=== PATIENT | female | born 1985 | race African-American/Black ===

== ENCOUNTER 2018-04-30 14:27 | Emergency (ER) | payer SELFPAY ==
[~2018-04-30 14:27] MED LIST: Iopamidol 370 76% 100 ML VIAL ONE
[2018-04-30 15:05] LABS: #Basophils 0.1 thou/uL (0.0-0.2); #Eosinphils 0.8 thou/uL (0.0-0.7); #Lymphocytes 1.6 thou/uL (1.20-3.40); #Monocytes 0.4 thou/uL (0.11-0.59); #Neutrophils 6.5 thou/uL (1.40-6.50); %Basophils 1.1 % (0.0-1.0); %Eosinophils 8.2 % (0.0-10.0); %Lymphocytes 17.1 % (21.0-51.0); %Monocytes 4.2 % (0.0-10.0); %Neutrophils 69.5 % (42.0-75.0); Hemoglobin 13.8 g/dL (12.0-16.0); Mean Corpuscular HGB CONC 33.1 g/dL (32.0-36.0); Mean Corpuscular Hemoglobin 29.4 pg (27.0-31.0); Mean Corpuscular Volume 88.8 fL (78.0-98.0); Mean Platelet Volume 6.5 fL (7.4-10.4); Platelet Count 404 thou/uL (130-400); RBC Distribution Width 11.8 % (11.5-14.5); White Blood Cell (WBC) Count 9.3 thou/uL (4.8-10.8)
[2018-04-30 15:24] LABS: BHCG - Serum Negative (NEGATIVE); Pregs Control Bar Appear? YES (CONTROL BAR)
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
[2018-04-30] MEDS ORDERED: Ketorolac Tromethamine 30 MG/ML VIAL ONE (16:01)
[2018-04-30 16:23] LABS: ALT (SGPT) 28 U/L (8-55); AST (SGOT) 23 U/L (5-34); Albumin 4.5 g/dL (3.5-5.0); Alkaline Phosphatase 82 U/L (40-150); Anion Gap 12 mmol/L (10-20); BUN (Urea Nitrogen) 5 mg/dL (7.0-18.7); Bilirubin, Total 0.8 mg/dL (0.2-1.2); Calc. Creatinine Clearance 0 mL/min (70-130); Calcium 9.7 mg/dL (7.8-10.44); Carbon Dioxide 23 mmol/L (22-29); Chloride 106 mmol/L (98-107); Estimated GFR-MDRD Greater than 90; Globulin 3.2 g/dL (2.4-3.5); Glucose 109 mg/dL (70-105); Potassium 3.1 mmol/L (3.5-5.1); Protein, Total 7.7 g/dL (6.0-8.3); Sodium 138 mmol/L (136-145)
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
== END 2018-04-30 16:40 | disposition home or self-care (01) ==
LOC: NAV ERS 14:27
DX: S27.322A Contusion of lung, bilateral, initial encounter (principal); F17.210 Nicotine dependence, cigarettes, uncomplicated; V43.52XA Car driver injured in collision with other type car in traffic accident, initial encounter
CPT/HCPCS: 36415; 71260; 72125; 74177; 80053; 84703; 85025; 94799; 96374; J1885; J7620; Q9967

== ENCOUNTER 2018-05-08 23:06 | Emergency (ER) | payer SELFPAY ==
[2018-05-08] MEDS ORDERED: methylPREDNISolone Acetate 40 mg/ml Vial ONE (23:30)
--- NOTE | 2018-05-13 05:57 | PQF ---
[facility] POST DISCHARGE CLINICAL DOCUMENTATION IMPROVEMENT CLARIFICATION FORM l Todays Date: 05/11/18 l Patients Name Krystal Duncan l l Admit Date 05/08/18 l Disch Date 05/08/18 Apron Operator Name [email or web address] To be completed by Apron Operator: Present Clinical Indicators - Signs / Symptoms Results and Location in Medical Record [ ] Documentation of: [ ] [ ] Documentation of: [ ] [ ] Documentation of: [ ] [ ] Documentation of: [ ] [ ] Risks [ ] [ ] [ ] Treatment [ ] BRONCHITIS MISSING SPECIFICITY FOR BRONCHITIS WHETHER ACUTE OR CHRONIC PLEASE CLARIFY. [ ] [ ] To be completed by Physician MD Acevedo James The documentation in this patients record requires clarification to ensure coding compliance and accuracy. Check the appropriate box and include in your discharge summary. [ ] [ ] [ ] [ ] Please check this box if this does not apply to this patient [ ] Unable to determine [ ] Other diagnosis: Review the following information and exercise your independent professional judgment in responding to the clarification. Based upon the clinical findings, risk factors, and treatment, please clarify if you are treating one of the above probable or suspected diagnoses. Physician Signature: Date Time MTDD
== END 2018-05-08 23:50 | disposition home or self-care (01) ==
LOC: NAV ERS 23:06
DX: J04.0 Acute laryngitis (principal); J40 Bronchitis, not specified as acute or chronic; F17.210 Nicotine dependence, cigarettes, uncomplicated; Z79.51 Long term (current) use of inhaled steroids
CPT/HCPCS: 94640; 96372; J1030; J7620

== ENCOUNTER 2019-01-29 11:23 | Emergency (ER) | payer SELFPAY | END 2019-01-29 12:03 | disposition home or self-care (01) | LOC: NAV ERS 11:23 | DX: K02.9 Dental caries, unspecified (principal); Z87.891 Personal history of nicotine dependence | CPT/HCPCS: 99281 ==

== ENCOUNTER 2019-04-27 00:23 | Emergency (ER) | payer OTHER ==
[2019-04-27] MEDS ORDERED: Albuterol Sulfate 2.5 mg/0.5 ml Neb ONE (01:03)
[2019-04-27] MEDS ORDERED: Ibuprofen 200 MG TAB ONE (01:10)
[2019-04-27] MEDS ORDERED: Acetaminophen 325 MG TAB ONE (01:11)
--- NOTE | 2019-04-27 09:34 | RAD ---
EXAM: Two views chest PROVIDED CLINICAL HISTORY: Cough. COMPARISON: 01/04/2008 FINDINGS: Cardiac silhouette and pulmonary vasculature are within normal limits. The lungs are clear. The osse ous structures have a normal appearance. No interval change from prior exam. IMPRESSION: No acute cardiopulmonary process.
== END 2019-04-27 02:07 | disposition home or self-care (01) ==
LOC: NAV ERS 00:23
DX: B34.9 Viral infection, unspecified (principal); Z87.891 Personal history of nicotine dependence
CPT/HCPCS: 71046; 87804; 94640; 94760; J7611

== ENCOUNTER 2020-01-23 08:31 | Emergency (ER) | payer OTHER ==
[2020-01-23] MEDS ORDERED: Acetaminophen 500 MG TAB ONE (08:55)
[2020-01-23] MEDS ORDERED: Cephalexin 250 MG CAP ONE (08:55)
[2020-01-23] MEDS ORDERED: Lidocaine Viscous Sol 2% 15 ml UD Cup ONE (08:55)
== END 2020-01-23 09:05 | disposition home or self-care (01) ==
LOC: NAV ERS 08:31
DX: N76.89 Other specified inflammation of vagina and vulva (principal); F17.210 Nicotine dependence, cigarettes, uncomplicated; Z79.899 Other long term (current) drug therapy
CPT/HCPCS: 99283

== ENCOUNTER 2021-02-15 05:18 | Emergency (ER) | payer OTHER ==
[2021-02-15] MEDS ORDERED: Lidocaine 1% (PF) 30 ML VIAL ONE (05:49)
[2021-02-15] MEDS ORDERED: Ibuprofen 100 MG/5 ML UDCUP ONE (05:50)
== END 2021-02-15 06:35 | disposition home or self-care (01) ==
LOC: NAV ERS 05:18
DX: N75.1 Abscess of Bartholin's gland (principal); F17.210 Nicotine dependence, cigarettes, uncomplicated
CPT/HCPCS: 56420; 87070; 87077; 87205; J2001

== ENCOUNTER 2021-02-21 17:42 | Emergency (ER) | payer OTHER | END 2021-02-21 18:12 | disposition home or self-care (01) | LOC: NAV ERS 17:42 | DX: Z46.82 Encounter for fitting and adjustment of non-vascular catheter (principal); F17.210 Nicotine dependence, cigarettes, uncomplicated | CPT/HCPCS: 99282 ==

== ENCOUNTER 2022-10-03 21:26 | Emergency (ER) | payer OTHER | END 2022-10-03 22:27 | disposition left against medical advice (07) | LOC: NAV ERS 21:26 | DX: J20.9 Acute bronchitis, unspecified (principal); J06.9 Acute upper respiratory infection, unspecified; F17.210 Nicotine dependence, cigarettes, uncomplicated; Z20.822 Contact with and (suspected) exposure to COVID-19 | CPT/HCPCS: 87635; 99285 ==

== ENCOUNTER 2023-08-02 19:22 | Emergency (ER) | payer OTHER ==
[2023-08-02] MEDS ORDERED: Lidocaine 1% w/Epinephrine 1:100K 20 ML VIAL ONE (19:43)
[2023-08-02] MEDS ORDERED: Ibuprofen 800 MG TAB ONE (19:43)
[2023-08-02] MEDS ORDERED: HYDROcodone/Acetaminophen 10/325 mg Tablet ONE (19:44)
[2023-08-02] MEDS ORDERED: Ondansetron ODT 4 MG TAB ONE (19:44)
[2023-08-02] MEDS ORDERED: Lidocaine/Transparent Dressing 1 EACH KIT ONE (19:46)
[2023-08-02] MEDS ORDERED: Bacitracin 1 PK ONE (21:41)
[2023-08-02] MEDS ORDERED: Amoxicillin/Potassium Clav 875 MG TAB ONE (21:41)
[2023-08-02] MEDS ORDERED: HYDROcodone/Acetaminophen 5/325 mg Tablet ONE (21:42)
== END 2023-08-02 21:52 | disposition home or self-care (01) ==
LOC: EEVIPCON 19:22 → NAV ERS 19:22
DX: S02.831A Fracture of medial orbital wall, right side, initial encounter for closed fracture (principal); S02.31XA Fracture of orbital floor, right side, initial encounter for closed fracture; S01.411A Laceration without foreign body of right cheek and temporomandibular area, initial encounter; S01.111A Laceration without foreign body of right eyelid and periocular area, initial encounter; F17.210 Nicotine dependence, cigarettes, uncomplicated; Y04.8XXA Assault by other bodily force, initial encounter
CPT/HCPCS: 12013; 70450; 70486; Q0162

== ENCOUNTER 2023-08-27 11:29 | Emergency (ER) | payer OTHER | END 2023-08-27 11:58 | disposition home or self-care (01) | LOC: NAV ERS 11:29 | DX: S05.31XD Ocular laceration without prolapse or loss of intraocular tissue, right eye, subsequent encounter (principal); Z48.02 Encounter for removal of sutures; F17.210 Nicotine dependence, cigarettes, uncomplicated; X58.XXXD Exposure to other specified factors, subsequent encounter ==